=== PATIENT | female | born 1980 | race Hispanic/Latino ===

== ENCOUNTER 2024-12-21 15:45 | Emergency (ER) | payer BC ==
[~2024-12-21] VITALS: Ht 188 cm; Wt 95.3 kg
[2024-12-21 15:54] VITALS: PULSE 91; RESP 18; TEMP 98.7; O2SAT 98
== END 2024-12-21 16:35 | disposition home or self-care (01) ==
LOC: ER 16:07
DX: S01.111A Laceration without foreign body of right eyelid and periocular area, initial encounter (principal); W22.09XA Striking against other stationary object, initial encounter; Y93.I9 Activity, other involving external motion
CPT/HCPCS: 99283